=== PATIENT | male | born 1995 | race Hispanic/Latino ===

== ENCOUNTER 2021-03-13 09:37 | Emergency (ER) | payer OTHER, SELFPAY ==
[2021-03-13 09:38] VITALS: BP 129/94; PULSE 87; RESP 15; TEMP 36.3; O2SAT 100; BMI 26.4
--- NOTE | 2021-03-13 09:58 | ED.VISSUMM ---
- ER Visit Summary Date of Service: 03/13/21 Chief Complaint: Bilateral lower rib cage pain History of Present Illness: The patient is a 25 M no significant past medical or surgical history except for he was diagnosed with COVID-19 in October. He was not hospitalized. Since that is done well. He said for last 4 months has had bilateral lower rib cage pain. 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 He was in [place] about 3 weeks ago. States he saw a physician there who told him that they thought it was rib cage chest wall strain. He denies any hemoptysis. He denies a history of DVT or PE. He denies any calf pain or swelling. He denies any shortness of breath or pleuritic pain. Movement seems to make the pain worse at times. He denies any falls or trauma. Physical Examination: Young male no acute distress vital signs stable afebrile. Pulse ox 90% on room air no signs of hypoxia. HEENT exam unremarkable. Neck nontender no lymphadenopathy. Lungs clear to auscultation bilaterally. Heart regular rhythm rate about 85 no murmur. Chest wall nontender. There is no ecchymosis or bruising. No subcu air crepitance. No signs of trauma. He points to pain in both anterior lower rib cage areas but at this time is not reproducible. There is no signs of trauma or subcu air or crepitance. Abdomen soft nontender normal bowel sounds no peritoneal signs. Both upper quadrant and epigastric region and abdomen are completely nontender. Patient is moving all 4 extremities. Neurovascular intact. Calves are nontender without edema or cords. Back nontender. Neurologically is awake and alert with no focal motor deficits. Test Results: Chest x-ray 2 views AP and lateral interpreted by myself and the radiologist shows no acute abnormality. Normal cardiac silhouette. Normal mediastinum. Normal bony structures. Normal lung avalos. I discussed this with the patient. Luiz exam at 10:34 AM patient is doing well will be discharged to home. Emergency Department Course and Treatment: 25 male with lower rib cage pain. Treatment Plan: Motrin for pain. Follow-up if not improving. Return if worse. Disposition: Discharge Impression: Chest wall pain This note was generated with [employer] dictation software. It may contain incorrect words, spelling, and punctuation that were not noted in review of the chart prior to signing
--- NOTE | 2021-03-13 10:00 | RAD_ITS ---
STUDY: X-RAY CHEST REASON FOR EXAM: Male, 25 years old. Atypical lower rib pain -- no trauma TECHNIQUE: PA and lateral views of the chest. COMPARISON: None. FINDINGS: The lungs are clear and expanded. Scattered calcified granulomas. There is no demonstrated pleural abnormality. Normal size heart. Normal mediastinum and angie. Normal visualized pulmonary arteries. Normal visualized aortic arch and descending thoracic aorta. Normal visualized thoracic spine. Normal visualized ribs, clavicles, and shoulders. There is no demonstrated abnormality of the visualized soft tissue structures of the upper abdomen. RAD/Chest PA and Lateral IMPRESSION: Normal x-ray examination of the chest. Electronically Signed: Palmer Hernandes MD at 10:28 EDT , Service support ,
--- NOTE | 2021-03-13 10:35 | ED.DEP ---
ED Disposition - Plan for ED Patient: Disposition: Home or Assisted Living Instructions: ED Chest Wall Pain, Costochondritis Referrals: Ilan Pascual MD [STAFF PHYSICIAN] - As Needed Additional Instructions: Motrin for pain. Follow-up if not improving your chest x-ray today is totally normal.
== END 2021-03-13 10:46 | disposition home or self-care (01) ==
PROVIDERS: Emergency Provider Emergency Medicine
DX: R07.89 Other chest pain (principal); Z86.16 Personal history of COVID-19
CPT/HCPCS: 71046; 99282

== ENCOUNTER 2021-04-24 09:47 | Outpatient (RCR) | payer OTHER, SELFPAY | END 2021-05-29 23:59 | LOC: IMMUN 09:47 | PROVIDERS: Visit Provider Family Medicine | DX: Z23 Encounter for immunization (principal) | CPT/HCPCS: 0001A; 91300 ==